=== PATIENT | female | born 2000 ===

== ENCOUNTER 2021-07-25 10:28 | Emergency (ER) | payer SELFPAY ==
[2021-07-25 17:38] LABS: Basophils % (Auto) 0.4 % (0.0-1.8); Eosinophils # (Auto) 0.1 K/mm3 (0.0-0.4); Eosinophils % (Auto) 0.6 % (0.0-4.3); Hematocrit 43.2 % (30.3-42.9); Hemoglobin 14.4 gm/dl (10.1-14.3); Mean Corpuscular HGB Conc 33 % (30-34); Mean Corpuscular Volume 89 fl (79-97); Monocytes # (Auto) 0.4 K/mm3 (0.0-0.8); Monocytes % (Auto) 4.4 % (0.0-7.3); Platelet Count 342 K/mm3 (140-440); Red Blood Count 4.83 M/mm3 (3.65-5.03); Red Cell Distribution Width 13.6 % (13.2-15.2)
[2021-07-25 17:59] LABS: Alanine Aminotransferase 14 units/L (7-56); Blood Urea Nitrogen 9 mg/dL (7-17); Calcium 9.4 mg/dL (8.4-10.2); Hemolysis Index 11
--- NOTE | 2021-07-25 18:24 | Emergency Department Report ---
ED Abdominal Pain HPI - General Chief Complaint: Abdominal Pain Stated Complaint: STOMACH PAIN Source: patient Mode of arrival: Ambulatory Limitations: No Limitations - History of Present Illness Initial Comments: 21-year-old female presents to the ED complaining of abdominal pain x4 days. Patient denies any vaginal discharge,dysuria nausea or vomiting. She states taking [id number] medication without any relief. Patient is alert and oriented x3. No acute distress noted. Patient states last menstrual cycle 2 weeks ago. Patient states that last bowel movement 2 days ago. No acute distress noted. No ill appearance noted. Patient denies any foreign travel.Patient states that abdominal pain is a current 3out of 10 . Patient states that the pain is diffuse throughout the abdominal . MD Complaint: abdominal pain Onset/Timin Location: diffuse Radiation: none Severity scale (0 -10): 3 Consistency: intermittent Improves With: nothing Worsens With: nothing Associated Symptoms: denies other symptoms - Related Data LMP (females 10-50): 2 months Previous Rx's Medication Instructions Recorded Last Taken Type Hyoscyamine Subl [Levsin Sl 0.125 0.125 mg SL Q4HR PRN 5 Days #20 07/25/21 Unknown Rx TAB] tablet Nitrofurantoin [place]/M-Cryst 100 mg PO Q12HR 10 Days #20 capsule 07/25/21 Unknown Rx [Macrobid CAP] Allergies Allergy/AdvReac Type Severity Reaction Status Date / Time No Known Allergies Allergy Unverified 07/25/21 10:48 ED Review of Systems ROS: Stated complaint: STOMACH PAIN Other details as noted in HPI Constitutional: denies: chills, fever Eyes: denies: eye pain, eye discharge, vision change ENT: denies: ear pain, throat pain Respiratory: denies: cough, shortness of breath, wheezing Cardiovascular: denies: chest pain, palpitations Endocrine: no symptoms reported Gastrointestinal: abdominal pain. denies: nausea, diarrhea Genitourinary: denies: urgency, dysuria, discharge Musculoskeletal: denies: back pain, joint swelling, arthralgia Skin: denies: rash, lesions Neurological: denies: headache, weakness, paresthesias Psychiatric: denies: anxiety, depression Hematological/Lymphatic: denies: easy bleeding, easy bruising ED Past Medical Hx - Medications Home Medications: Home Medications Medication Instructions Recorded Confirmed Last Taken Type Hyoscyamine Subl [Levsin Sl 0.125 0.125 mg SL Q4HR PRN 5 Days #20 07/25/21 Unknown Rx TAB] tablet Nitrofurantoin [place]/M-Cryst 100 mg PO Q12HR 10 Days #20 capsule 07/25/21 Unknown Rx [Macrobid CAP] ED Physical Exam - General Limitations: No Limitations General appearance: alert, in no apparent distress - Head Head exam: Present: atraumatic, normocephalic - Eye Eye exam: Present: normal appearance - ENT ENT exam: Present: mucous membranes moist - Neck Neck exam: Present: normal inspection - Respiratory Respiratory exam: Present: normal lung sounds bilaterally. Absent: respiratory distress - Cardiovascular Cardiovascular Exam: Present: regular rate, normal rhythm. Absent: systolic murmur, diastolic murmur, rubs, gallop - GI/Abdominal GI/Abdominal exam: Present: soft, normal bowel sounds - Extremities Exam Extremities exam: Present: normal inspection - Back Exam Back exam: Present: normal inspection - Neurological Exam Neurological exam: Present: alert, oriented X3 - Psychiatric Psychiatric exam: Present: normal affect, normal mood - Skin Skin exam: Present: warm, dry, intact, normal color. Absent: rash ED Course Vital Signs 07/25/21 07/25/21 10:48 19:57 Temperature 97.7 F Pulse Rate 81 80 Respiratory 18 18 Rate Blood Pressure 128/71 128/70 [Right] O2 Sat by Pulse 98 99 Oximetry ED Medical Decision Making - Lab Data Result diagrams: 07/25/21 17:18 07/25/21 17:18 - Medical Decision Making 21-year-old female presents to the ED complaining of abdominal pain x4 days. Patient denies any vaginal discharge,dysuria nausea or vomiting. She states taking [id number] medication without any relief. Patient is alert and oriented x3. No acute distress noted. Patient states last menstrual cycle 2 weeks ago. Patient states that last bowel movement 2 days ago. No acute distress noted. No ill appearance noted. Patient denies any foreign travel. Patient states that abdominal pain is a current 3out of 10 . Patient states that the pain is diffuse throughout the abdominal . Physical examination diffuse tenderness upon all 4 quadrant. Rechecked the patient is resting quietly quietly and comfortable and feeling better. I discussed the results of diagnostic study, my clinical impression and the plan for further treatment with the patient. Patient agrees with plan and discharge at this present time. All question addressed. I have given the patient instruction regarding a diagnosis ,expectation ,follow- up and return precaution. I explained to the patient that emergent condition may arise and to return to the ED for new worsen and any new persisting condition. I have explained the importance of following up with the primary care physician or referral physician listed below has instructed. The patient verbalized unde rstanding of discharge instruction. Abnormal Lab Results 07/25/21 07/25/21 07/25/21 17:18 17:18 17:18 WBC 9.7 RBC 4.83 Hgb 14.4 H Hct 43.2 H MCV 89 MCH 30 MCHC 33 RDW 13.6 Plt Count 342 Lymph % (Auto) 41.0 H [place] % (Auto) 4.4 Eos % (Auto) 0.6 Baso % (Auto) 0.4 Lymph # (Auto) 4.0 [place] # (Auto) 0.4 Eos # (Auto) 0.1 Baso # (Auto) 0.0 Seg Neutrophils % 53.6 Seg Neutrophils # 5.2 Sodium 137 Potassium 4.4 Chloride 100.8 Carbon Dioxide 22 Anion Gap 19 BUN 9 Creatinine 0.4 L Estimated GFR > 60 BUN/Creatinine Ratio 23 Glucose 83 Calcium 9.4 Total Bilirubin 0.70 AST 19 ALT 14 Alkaline Phosphatase 122 Total Protein 7.9 Albumin 5.0 Albumin/Globulin Ratio 1.7 Amylase 57 Lipase 18 HCG, Quant < 2 Urine Color Urine Turbidity Urine pH Ur Specific [place] Urine Protein Urine Glucose (UA) Urine Ketones Urine Blood Urine Nitrite Urine Bilirubin Urine Urobilinogen Ur Leukocyte Esterase Urine WBC (Auto) Urine RBC (Auto) U Epithel Cells (Auto) Urine Mucus Urine Yeast (Budding) 07/25/21 Unknown WBC RBC Hgb Hct MCV MCH MCHC RDW Plt Count Lymph % (Auto) [place] % (Auto) Eos % (Auto) Baso % (Auto) Lymph # (Auto) [place] # (Auto) Eos # (Auto) Baso # (Auto) Seg Neutrophils % Seg Neutrophils # Sodium Potassium Chloride Carbon Dioxide Anion Gap BUN Creatinine Estimated GFR BUN/Creatinine Ratio Glucose Calcium Total Bilirubin AST ALT Alkaline Phosphatase Total Protein Albumin Albumin/Globulin Ratio Amylase Lipase HCG, Quant Urine Color Yellow Urine Turbidity Clear Urine pH 6.0 Ur Specific [place] 1.019 Urine Protein <15 mg/dl Urine Glucose (UA) Neg Urine Ketones Neg Urine Blood Neg Urine Nitrite Neg Urine Bilirubin Neg Urine Urobilinogen < 2.0 Ur Leukocyte Esterase Mod Urine WBC (Auto) 11.0 H Urine RBC (Auto) 3.0 U Epithel Cells (Auto) 13.0 Urine Mucus 2+ Urine Yeast (Budding) Few Critical care attestation.: If time is entered above; I have spent that time in minutes in the direct care of this critically ill patient, excluding procedure time. ED Disposition Clinical Impression: Acute urinary tract infection Disposition: 01 HOME / SELF CARE / HOMELESS Is pt being admited?: No Does the pt Need Aspirin: No Condition: Stable Instructions: Antibiotic Medicine, Adult, [id number], Urinary Tract Infection , Adult, Abdominal Pain (ED) Additional Instructions: Take medication as prescribed Return to ED for any worsening symptom Prescriptions: Hyoscyamine Subl [Levsin Sl 0.125 TAB] 0.125 mg SL Q4HR PRN 5 Days #20 tablet PRN Reason: Spasms Nitrofurantoin [place]/M-Cryst [Macrobid CAP] 100 mg PO Q12HR 10 Days #20 capsule Referrals: PRIMARY CARE [Primary Care Provider] - 3-5 Days [facility] [Provider Group] - 3-5 Days Forms: Work/School Release Form(ED) Time of Disposition: 19:27
[2021-07-25 18:26] LABS: BUN/Creatinine Ratio 23
[2021-07-25 18:57] LABS: Bilirubin,Urine NEG (Negative); Blood,Urine NEG (Negative); Color,Urine Yellow (Yellow); Mucus,Urine 2+ /HPF; Protein,Urine <15 mg/dL mg/dL (Negative); Urobilinogen,Urine < 2.0 mg/dL (<2.0)
[2021-07-25 19:58] VITALS: BP 128/70
== END 2021-07-25 19:57 | disposition home or self-care (01) ==
LOC: ED 10:28
DX: N39.0 Urinary tract infection, site not specified (principal); Z79.899 Other long term (current) drug therapy
CPT/HCPCS: 36415; 80053; 81001; 82150; 83690; 84702; 85025; 87086; 99283